=== PATIENT | female | born 1960 ===

== ENCOUNTER 2019-03-25 14:14 | Outpatient (CLI) | payer MEDICARE ==
--- NOTE | 2019-03-26 09:34 | Mammography Report ---
STEREOTACTIC NEEDLE BIOPSY WITH CLIP PLACEMENT LEFT BREAST INDICATION: Left breast mass with calcifications. COMPARISON: [facility] 02/26/2019 and 02/18/2019 mammograms FINDINGS: The patient was placed prone on the stereotactic biopsy table. A timeout was called and the skin was marked and cleansed with betadine. Using stereotactic guidance, sterile technique and 1% lidocaine for skin anesthesia and 2% lidocaine with epinephrine for deep anesthesia, 8-gauge Mammotome vacuum-assisted biopsy was performed from a C C from above approach. Samples were obtained around the clock face and construction representative calcifications along with portions of a mass were identified on a specimen radiograph. A localizer clip was placed a t the biopsy site and the probe was removed. Hemostasis was achieved with pressure to the site. A julian rile dressing was applied. A post procedure mammogram demonstrated removal of the calcifications along with a significant portio n of the mass and concordant location of the biopsy clip. The patient tolerated the procedure well an d there were no apparent complications. She left the department in good condition with a cold pack ap plied to the biopsy site and she was given instructions for wound care and follow-up. IMPRESSION: 1. Successful uncomplicated stereotactic biopsy left breast.. Signer Name: Arvind Garibay MD Signed: 03/26/2019 9:29 AM Workstation Name: [id number]
--- NOTE | 2019-03-26 16:17 | Mammography Report ---
LEFT DIGITAL DIAGNOSTIC MAMMOGRAM CLINICAL: For clip placement after stereotactic biopsy. COMPARISON: 02/26/2019 and 02/18/2019 FINDINGS: A biopsy clip is identified in the upper outer quadrant and is concordant with the location of the previously identified mass with calcifications. Margins of any remaining mass are obscured by lidocaine. No residual calcifications are identified. IMPRESSION: Successful stereotactic biopsy with concordant clip deployment. Signer Name: Arvind Garibay MD Signed: 03/26/2019 4:13 PM Workstation Name: [id number]
== END 2019-03-25 14:15 | disposition home or self-care (01) ==
LOC: SPVWC 14:14
PROVIDERS: ATTEND Surgery
DX: N63.20 Unspecified lump in the left breast, unspecified quadrant (principal); C50.912 Malignant neoplasm of unspecified site of left female breast; R92.8 Other abnormal and inconclusive findings on diagnostic imaging of breast; Z17.0 Estrogen receptor positive status [ER+]
CPT/HCPCS: 88305; 88341; 88342